=== PATIENT | female | born 1940 | race Caucasian/White ===

== ENCOUNTER → 2016-05-13 | Outpatient (CLI) | payer MEDICARE, OTHER ==
[2016-05-13 12:23] LABS: Basophils # (auto) 0 uL; Basophils % (auto) 0.5 % (0.0-2.0); Eosinophils # (auto) 0.1 uL; Eosinophils % (auto) 1.6 % (0.0-7.0); Hematocrit 42.6 % (36.0-46.0); Hemoglobin 13.6 g/dL (12.2-16.2); Lymphocytes # (auto) 1.3 uL; Lymphocytes % (auto) 24.1 % (10.0-50.0); Mean Corpuscular Volume 93.5 fL (80.0-100.0); Mean Platelet Volume 8.8 fL (7.4-10.4); Monocytes # (auto) 0.4 uL; Monocytes % (auto) 7.6 % (0.0-12.0); Neutrophils # (auto) 3.7 uL; Neutrophils % (auto) 66.2 % (37.0-80.0); Platelet Count (auto) 236 10^3/uL (140-450); Red Cell Distribution Width 12.9 % (11.6-16.0); White Blood Cell 5.5 10^3/uL (4.4-10.8)
[2016-05-13 14:41] LABS: BUN/Creatinine Ratio 18.1; Bilirubin, Total 0.6 mg/dL (0.2-1.0); Potassium 3.7 mmol/L (3.5-5.1); Total Protein 7.5 g/dL (6.4-8.2)
== END | disposition home or self-care (01) ==
LOC: LAB 09:58
DX: E03.9 Hypothyroidism, unspecified (principal); I10 Essential (primary) hypertension; M25.50 Pain in unspecified joint; M06.9 Rheumatoid arthritis, unspecified; Z79.899 Other long term (current) drug therapy; D64.9 Anemia, unspecified
CPT/HCPCS: 36415; 80053; 85025; 85652; 86141

== ENCOUNTER → 2016-06-24 | Outpatient (CLI) | payer MEDICARE, OTHER | END | disposition home or self-care (01) | LOC: HDHVI->DVH 08:03 | PROVIDERS: ATTEND Internal Medicine Cardiovascular Disease | DX: E78.2 Mixed hyperlipidemia (principal); I10 Essential (primary) hypertension; E03.9 Hypothyroidism, unspecified; I05.0 Rheumatic mitral stenosis; M48.00 Spinal stenosis, site unspecified | CPT/HCPCS: 93306 ==

== ENCOUNTER → 2016-08-05 | Outpatient (CLI) | payer MEDICARE, OTHER ==
[~2016-08-05] VITALS: Ht 165.1 cm; Wt 91.2 kg
[~2016-08-05] MED LIST: ADENOSINE 77 MG in GIVE UN-DILUTED 0 ML IV ONE; ADENOSINE 90 MG/30 ML INJ IV ONE
== END | disposition home or self-care (01) ==
LOC: Rad HDHVI 07:47
PROVIDERS: ATTEND Internal Medicine Cardiovascular Disease
DX: I34.2 Nonrheumatic mitral (valve) stenosis (principal); I10 Essential (primary) hypertension; Z82.49 Family history of ischemic heart disease and other diseases of the circulatory system
CPT/HCPCS: 78452; 93005; 96374; 96375; A9500; J0153

== ENCOUNTER → 2016-11-19 | Outpatient (CLI) | payer MEDICARE, OTHER ==
[2016-11-19 09:15] VITALS: BP 119/66
[2016-11-19 10:00] VITALS: BP 121/65
[2016-11-19 10:15] LABS: Urine RBC None Seen /hpf (0 - 4)
[2016-11-19 12:36] LABS: Urine Bilirubin Negative (Negative); Urine Blood Negative /uL (Negative); Urine Color Yellow (Yellow); Urine Glucose Normal (Normal); Urine Ketone Negative (Negative); Urine Nitrite Negative (Negative); Urine Squamous Epithelial Cell FEW /hpf (<5); Urine Urobilinogen Normal (Negative)
[2016-11-19 12:40] LABS: Basophils # (auto) 0 uL; Basophils % (auto) 0.4 % (0.0-2.0); CONDITION Y; Eosinophils # (auto) 0.1 uL; Eosinophils % (auto) 2.4 % (0.0-7.0); Hematocrit 41.2 % (36.0-46.0); Hemoglobin 13.7 g/dL (12.2-16.2); Lymphocytes # (auto) 1.3 uL; Lymphocytes % (auto) 27.2 % (10.0-50.0); Mean Corpuscular Hgb Conc. 33.3 g/dL (32.0-36.0); Mean Corpuscular Volume 93.1 fL (80.0-100.0); Mean Platelet Volume 8.6 fL (7.4-10.4); Monocytes # (auto) 0.3 uL; Monocytes % (auto) 6.2 % (0.0-12.0); Neutrophils # (auto) 3.1 uL; Neutrophils % (auto) 63.8 % (37.0-80.0); Platelet Count (auto) 205 10^3/uL (140-450); Red Cell Distribution Width 13.5 % (11.6-16.0); White Blood Cell 4.9 10^3/uL (4.4-10.8)
[2016-11-19 12:42] LABS: INR 0.95 (0.9-1.15); Prothrombin Time 10.4 sec (9.37-12.3)
[2016-11-19 12:54] LABS: Albumin 3.7 g/dL (3.4-5.0); Bilirubin, Total 0.4 mg/dL (0.2-1.0); Calcium 8.8 mg/dL (8.5-10.1); Potassium 4.1 mmol/L (3.5-5.1); Total Protein 7.1 g/dL (6.4-8.2)
== END | disposition home or self-care (01) ==
LOC: CHF HDHVI 09:00
PROVIDERS: ATTEND Internal Medicine Cardiovascular Disease
DX: Z01.818 Encounter for other preprocedural examination (principal); I05.0 Rheumatic mitral stenosis; R94.31 Abnormal electrocardiogram [ECG] [EKG]; I10 Essential (primary) hypertension; D64.9 Anemia, unspecified; R79.1 Abnormal coagulation profile; R82.79 Other abnormal findings on microbiological examination of urine; Z82.49 Family history of ischemic heart disease and other diseases of the circulatory system
CPT/HCPCS: 36415; 80053; 81001; 85025; 85610; 85730; 87086; 93005; G0463

== ENCOUNTER → 2016-12-27 | Outpatient (CLI) | payer MEDICARE, OTHER ==
[2016-12-27 12:17] LABS: Urine Bilirubin Negative (Negative); Urine Blood Negative /uL (Negative); Urine Color Yellow (Yellow); Urine Glucose Normal (Normal); Urine Ketone Negative (Negative); Urine Nitrite Negative (Negative); Urine Urobilinogen Normal (Negative); Urine pH 7.5 (5.0-8.0)
[2016-12-27 12:24] LABS: Basophils # (auto) 0 uL; Basophils % (auto) 0.7 % (0.0-2.0); Eosinophils # (auto) 0.1 uL; Eosinophils % (auto) 1.8 % (0.0-7.0); Hematocrit 38.7 % (36.0-46.0); Hemoglobin 12.7 g/dL (12.2-16.2); Lymphocytes # (auto) 1.1 uL; Lymphocytes % (auto) 21.3 % (10.0-50.0); Mean Corpuscular Hemoglobin 31.4 pg (28.0-32.0); Mean Corpuscular Hgb Conc. 32.9 g/dL (32.0-36.0); Mean Corpuscular Volume 95.6 fL (80.0-100.0); Monocytes # (auto) 0.5 uL; Neutrophils # (auto) 3.4 uL; Neutrophils % (auto) 67.2 % (37.0-80.0); Platelet Count (auto) 219 10^3/uL (140-450); Red Cell Distribution Width 14.5 % (11.8-14.3); White Blood Cell 5.1 10^3/uL (4.4-10.8)
[2016-12-27 12:46] LABS: Albumin 4.1 g/dL (3.4-5.0); BUN/Creatinine Ratio 15.6; Bilirubin, Direct 0.2 mg/dL (0-0.2); Bilirubin, Total 0.6 mg/dL (0.2-1.0); Calcium 9.9 mg/dL (8.5-10.1); Potassium 4.9 mmol/L (3.5-5.1); Total Protein 7.7 g/dL (6.4-8.2)
== END | disposition home or self-care (01) ==
LOC: LAB 08:09
PROVIDERS: ATTEND Internal Medicine Cardiovascular Disease
DX: I10 Essential (primary) hypertension (principal); E78.00 Pure hypercholesterolemia, unspecified; K74.1 Hepatic sclerosis; E11.9 Type 2 diabetes mellitus without complications; E03.9 Hypothyroidism, unspecified; D64.9 Anemia, unspecified; N39.0 Urinary tract infection, site not specified; E55.9 Vitamin D deficiency, unspecified; R70.0 Elevated erythrocyte sedimentation rate; I25.10 Atherosclerotic heart disease of native coronary artery without angina pectoris
CPT/HCPCS: 36415; 80048; 80061; 80076; 81003; 82306; 83036; 84439; 84443; 85025; 85652; 86141

== ENCOUNTER → 2017-07-28 | Outpatient (CLI) | payer MEDICARE, OTHER ==
[2017-07-28 12:18] LABS: Urine Blood Negative /uL (Negative); Urine Specific Gravity 1.012 (1.001-1.035)
[2017-07-28 12:25] LABS: Basophils # (auto) 0 uL; Basophils % (auto) 0.4 % (0.0-2.0); Eosinophils # (auto) 0.1 uL; Eosinophils % (auto) 1.6 % (0.0-7.0); Hematocrit 44.6 % (36.0-46.0); Hemoglobin 14.9 g/dL (12.2-16.2); Lymphocytes % (auto) 20.4 % (10.0-50.0); Mean Corpuscular Hgb Conc. 33.5 g/dL (32.0-36.0); Mean Corpuscular Volume 92.5 fL (80.0-100.0); Monocytes # (auto) 0.4 uL; Monocytes % (auto) 7.8 % (0.0-12.0); Neutrophils # (auto) 3.5 uL; Neutrophils % (auto) 69.8 % (37.0-80.0); Nucleated Red Blood Cells % 0.6 %; Platelet Count (auto) 163 10^3/uL (140-450); Red Blood Cells 4.81 10^6/uL (4.0-5.20); Red Cell Distribution Width 13.5 % (11.8-14.3)
[2017-07-28 12:43] LABS: Free T4 (Free Thyroxine) 1.91 ng/dL (0.89-1.76)
[2017-07-28 13:16] LABS: BUN/Creatinine Ratio 22.7; Bilirubin, Total 0.5 mg/dL (0.2-1.0); Calcium 9.2 mg/dL (8.5-10.1); Potassium 4.2 mmol/L (3.5-5.1); Total Protein 7.4 g/dL (6.4-8.2)
== END | disposition home or self-care (01) ==
LOC: LAB 08:48
PROVIDERS: ATTEND Internal Medicine Cardiovascular Disease
DX: I10 Essential (primary) hypertension (principal); E11.9 Type 2 diabetes mellitus without complications; D64.9 Anemia, unspecified; E78.5 Hyperlipidemia, unspecified; E03.9 Hypothyroidism, unspecified; E55.9 Vitamin D deficiency, unspecified; N39.0 Urinary tract infection, site not specified; D51.9 Vitamin B12 deficiency anemia, unspecified
CPT/HCPCS: 36415; 80053; 80061; 81003; 82306; 82607; 83036; 84439; 84443; 85025

== ENCOUNTER → 2018-01-20 | Outpatient (CLI) | payer MEDICARE, BC | END | disposition home or self-care (01) | LOC: Rad HDHVI 09:36 | PROVIDERS: ATTEND Internal Medicine Cardiovascular Disease | DX: I95.9 Hypotension, unspecified (principal); R07.89 Other chest pain; R06.02 Shortness of breath | CPT/HCPCS: 93306 ==

== ENCOUNTER → 2018-02-06 | Outpatient (CLI) | payer MEDICARE, BC ==
[~2018-02-06] VITALS: Ht 165.1 cm; Wt 90.7 kg
[2018-02-06 12:57] LABS: Basophils # (auto) 0 uL; Basophils % (auto) 0.7 % (0.0-2.0); Eosinophils # (auto) 0.1 uL; Eosinophils % (auto) 2.2 % (0.0-7.0); Hemoglobin 13.8 g/dL (12.2-16.2); Lymphocytes # (auto) 0.9 uL; Lymphocytes % (auto) 23.5 % (10.0-50.0); Mean Corpuscular Hemoglobin 31.1 pg (28.0-32.0); Mean Corpuscular Hgb Conc. 32.9 g/dL (32.0-36.0); Mean Corpuscular Volume 94.6 fL (80.0-100.0); Monocytes # (auto) 0.4 uL; Monocytes % (auto) 9.1 % (0.0-12.0); Neutrophils # (auto) 2.5 uL; Neutrophils % (auto) 64.5 % (37.0-80.0); Nucleated Red Blood Cells % 0.5 %; Platelet Count (auto) 163 10^3/uL (140-450); Red Blood Cells 4.45 10^6/uL (4.0-5.20); Red Cell Distribution Width 13.3 % (11.8-14.3); White Blood Cell 3.9 10^3/uL (4.4-10.8)
[2018-02-06 12:58] LABS: Urine Blood Negative /uL (Negative); Urine Specific Gravity 1.018 (1.001-1.035)
[2018-02-06 13:20] LABS: Albumin 3.7 g/dL (3.4-5.0); BUN/Creatinine Ratio 22.1; Calcium 8.8 mg/dL (8.5-10.1)
[2018-02-06 13:24] LABS: Bilirubin, Total 0.4 mg/dL (0.2-1.0); Total Protein 7.2 g/dL (6.4-8.2)
[2018-02-06 13:52] LABS: Free T4 (Free Thyroxine) 1.39 ng/dL (0.89-1.76)
== END | disposition home or self-care (01) ==
LOC: Rad HDHVI 07:55
PROVIDERS: ATTEND Internal Medicine Cardiovascular Disease
DX: R07.89 Other chest pain (principal); R06.02 Shortness of breath; E03.9 Hypothyroidism, unspecified; E55.9 Vitamin D deficiency, unspecified; E11.9 Type 2 diabetes mellitus without complications; D51.9 Vitamin B12 deficiency anemia, unspecified; N39.0 Urinary tract infection, site not specified; M62.89 Other specified disorders of muscle; E04.9 Nontoxic goiter, unspecified
CPT/HCPCS: 36415; 78452; 80053; 80061; 81003; 82306; 82607; 83036; 84439; 84443; 85025; 87086; 93017; 96374; A9500

== ENCOUNTER → 2018-04-21 | Outpatient (CLI) | payer MEDICARE, BC | END | disposition home or self-care (01) | LOC: Rad HDHVI 14:29 | PROVIDERS: ATTEND Internal Medicine Cardiovascular Disease | DX: M85.9 Disorder of bone density and structure, unspecified (principal) | CPT/HCPCS: 77078 ==

== ENCOUNTER → 2018-06-23 | Outpatient (CLI) | payer MEDICARE, BC | END | disposition home or self-care (01) | LOC: Rad HDHVI 12:46 | PROVIDERS: ATTEND Internal Medicine Cardiovascular Disease | DX: I34.0 Nonrheumatic mitral (valve) insufficiency (principal); I11.0 Hypertensive heart disease with heart failure; I50.33 Acute on chronic diastolic (congestive) heart failure | CPT/HCPCS: 93306 ==

== ENCOUNTER → 2018-06-28 | Outpatient (CLI) | payer MEDICARE, BC ==
[2018-06-28 12:23] LABS: Basophils # (auto) 0 uL; Basophils % (auto) 0.5 % (0.0-2.0); Eosinophils # (auto) 0.1 uL; Eosinophils % (auto) 3.2 % (0.0-7.0); Hematocrit 43.6 % (36.0-46.0); Hemoglobin 14.3 g/dL (12.2-16.2); Lymphocytes # (auto) 0.9 uL; Lymphocytes % (auto) 25.2 % (10.0-50.0); Mean Corpuscular Hgb Conc. 32.8 g/dL (32.0-36.0); Mean Corpuscular Volume 94.5 fL (80.0-100.0); Monocytes # (auto) 0.3 uL; Monocytes % (auto) 9.3 % (0.0-12.0); Neutrophils # (auto) 2.2 uL; Neutrophils % (auto) 61.8 % (37.0-80.0); Nucleated Red Blood Cells % 0.2 %; Platelet Count (auto) 159 10^3/uL (140-450); Red Blood Cells 4.61 10^6/uL (4.0-5.20); Red Cell Distribution Width 13.5 % (11.8-14.3); White Blood Cell 3.5 10^3/uL (4.4-10.8)
[2018-06-28 12:26] LABS: Urine Blood Negative /uL (Negative); Urine Specific Gravity 1.018 (1.001-1.035)
[2018-06-28 12:42] LABS: Albumin 3.8 g/dL (3.4-5.0); Calcium 9.3 mg/dL (8.5-10.1); Potassium 4.3 mmol/L (3.5-5.1)
[2018-06-28 12:47] LABS: BUN/Creatinine Ratio 18.3; Bilirubin, Total 0.4 mg/dL (0.2-1.0)
[2018-06-28 13:00] LABS: Free T4 (Free Thyroxine) 1.74 ng/dL (0.89-1.76)
== END | disposition home or self-care (01) ==
LOC: CHF HDHVI 07:52
PROVIDERS: ATTEND Internal Medicine Cardiovascular Disease
DX: N39.0 Urinary tract infection, site not specified (principal); E03.9 Hypothyroidism, unspecified; E11.9 Type 2 diabetes mellitus without complications; E55.9 Vitamin D deficiency, unspecified; D51.9 Vitamin B12 deficiency anemia, unspecified
CPT/HCPCS: 36415; 80053; 80061; 81003; 82306; 82607; 83036; 84439; 84443; 85025; 87086

== ENCOUNTER → 2018-10-02 | Outpatient (CLI) | payer MEDICARE, BC | END | disposition home or self-care (01) | LOC: Rad HDHVI 09:16 | PROVIDERS: ATTEND Internal Medicine Cardiovascular Disease | DX: K57.30 Diverticulosis of large intestine without perforation or abscess without bleeding (principal); D25.9 Leiomyoma of uterus, unspecified; M51.37 Other intervertebral disc degeneration, lumbosacral region; M40.46 Postural lordosis, lumbar region; M89.48 Other hypertrophic osteoarthropathy, other site; M54.17 Radiculopathy, lumbosacral region; M25.78 Osteophyte, vertebrae; M54.14 Radiculopathy, thoracic region; M25.551 Pain in right hip; M25.552 Pain in left hip; M51.26 Other intervertebral disc displacement, lumbar region | CPT/HCPCS: 72131; 72192 ==

== ENCOUNTER 2019-04-13 14:31 | Inpatient (IN) | payer MEDICARE, OTHER ==
[~2019-04-13] VITALS: Ht 165.1 cm; Wt 97.9 kg
[2019-04-13] MEDS ORDERED: SODIUM CHLORIDE 0.9% 500 ML IV ONE (15:05)
[2019-04-13 16:49] LABS: Basophils # (auto) 0 uL; Basophils % (auto) 0.4 % (0.0-2.0); Eosinophils # (auto) 0 uL; Eosinophils % (auto) 0.6 % (0.0-7.0); Hematocrit 43.7 % (36.0-46.0); Hemoglobin 14.6 g/dL (12.2-16.2); Lymphocytes # (auto) 0.8 uL; Lymphocytes % (auto) 10.6 % (10.0-50.0); Mean Corpuscular Hemoglobin 31.3 pg (28.0-32.0); Mean Corpuscular Hgb Conc. 33.4 g/dL (32.0-36.0); Mean Corpuscular Volume 93.7 fL (80.0-100.0); Monocytes # (auto) 0.5 uL; Monocytes % (auto) 7.3 % (0.0-12.0); Neutrophils # (auto) 5.9 uL; Neutrophils % (auto) 81.1 % (37.0-80.0); Nucleated Red Blood Cells % 0.1 %; Platelet Count (auto) 129 10^3/uL (140-450); Red Blood Cells 4.67 10^6/uL (4.0-5.20); Red Cell Distribution Width 14.2 % (11.8-14.3); White Blood Cell 7.3 10^3/uL (4.4-10.8)
[2019-04-13 17:08] LABS: Albumin 3.6 g/dL (3.4-5.0); BUN/Creatinine Ratio 23.1; Calcium 9.1 mg/dL (8.5-10.1); Magnesium 2.6 mg/dL (1.6-2.6); Potassium 4.6 mmol/L (3.5-5.1)
[2019-04-13 17:13] LABS: Bilirubin, Total 0.4 mg/dL (0.2-1.0); Total Protein 7.4 g/dL (6.4-8.2)
[2019-04-13 18:51] LABS: Urine Bacteria NONE SEEN /hpf (None Seen); Urine Blood Negative /uL (Negative); Urine Mucus FEW (None Seen); Urine Specific Gravity 1.007 (1.001-1.035); Urine WBC 1 /hpf (0 - 5)
[2019-04-13] MEDS ORDERED: ENOXAPARIN SOD 80 MG/0.8ML SYRINGE SC SCH (19:30)
[2019-04-13] MEDS ORDERED: ENOXAPARIN SOD 80 MG/0.8ML SYRINGE SC ONE (20:15)
[2019-04-13 21:45] VITALS: BP 165/84
--- NOTE | 2019-04-13 21:45 | NUR ---
Telemetry admit from [facility] admitted to Telemetry unit. Patient oriented to primary RN, unit, room, bed, and unit policies regarding patient care and visiting hours. Patient now on continuous telemetry monitoring, tele box #55 and telemetry reading on arrival to unit is sinus rhythm. Patient placed on bedside oxygen, weighed by bedscale and encouraged to call if they need something. All questions and concerns addressed, patient verbalized understanding. Bed is in lowest locked position, call light within reach, side rails up x2, fall precautions in place. Will continue to monitor q1hr and prn. Signed: 04/13/19 at 2355 by MIGUEL OJEDA SN <Co-Signature Required> Co-Signed: 04/13/19 at 2355 by WILLIAM PERRIN OCA, RN
[2019-04-13 21:57] VITALS: BP 165/84
[2019-04-13] MEDS ORDERED: LEVO125T7 PO (23:15)
[2019-04-13] MEDS ORDERED: GABA100C9 PO (23:15)
[2019-04-13] MEDS ORDERED: LORA0.5T12 PO (23:15)
[2019-04-13] MEDS ORDERED: MAGN400T40 PO (23:15)
[2019-04-13] MEDS ORDERED: LISI-275 PO (23:15)
[2019-04-13] MEDS ORDERED: CYA100I PO (23:15)
[2019-04-13] MEDS ORDERED: METO25TA93 PO (23:15)
[2019-04-13] MEDS ORDERED: CARB25TA22 PO (23:15)
[2019-04-13] MEDS ORDERED: MULT-688 PO (23:15)
[2019-04-13] MEDS ORDERED: ESCI20TA51 PO (23:15)
[2019-04-13] MEDS ORDERED: CHOL20007 PO (23:15)
[2019-04-14 04:44] VITALS: BP 115/65
[2019-04-14 09:12] VITALS: BP 94/62
[2019-04-14] MEDS ORDERED: ENOXAPARIN SOD 80 MG/0.8ML SYRINGE SC SCH (10:00)
[2019-04-14] MEDS: ENOXAPARIN SOD 80 MG/0.8ML SYRINGE SC SCH ×2 (11:02→22:06)
[2019-04-14 13:32] VITALS: BP 111/57
[2019-04-14] MEDS ORDERED: GABAPENTIN 100 MG CAP PO PRN ×2 (15:30→16:00)
[2019-04-14] MEDS ORDERED: LORazepam 0.5 MG TAB PO PRN (15:30)
[2019-04-14 17:17] VITALS: BP 130/72
--- NOTE | 2019-04-14 19:42 | NUR ---
received report from day rn poc reviewed
--- NOTE | 2019-04-14 20:00 | NUR ---
pt observed resting comfortable, resp even and unlabored, family at bedside, denies pain or discomfort,
[2019-04-14 21:00] VITALS: BP 126/63
--- NOTE | 2019-04-14 22:00 | NUR ---
evening med given, pt denies pain or discomfort, family at bedside, spouse stated that his is blind and he was given permission last night to stay with her to help her to the bathroom, no other pts in room, will notify charge nurse
--- NOTE | 2019-04-15 | NUR ---
no change resting comfortable with eyes closed
--- NOTE | 2019-04-15 02:11 | NUR ---
resting with eyes closed resp even call light within reach
[2019-04-15] MEDS ORDERED: OLAN2.5T32 PO (02:39)
[2019-04-15 04:30] VITALS: BP 156/91
[2019-04-15] MEDS: LEVOTHYROXINE SODIUM 50 MCG TAB PO SCH (06:40)
--- NOTE | 2019-04-15 06:47 | NUR ---
awoke am care given, no c/o discomfort will continue to monitor and report off to am nurse
[2019-04-15] MEDS ORDERED: LEVOTHYROXINE SODIUM 25 MCG TAB PO SCH (07:00)
--- NOTE | 2019-04-15 07:10 | NUR ---
report given to am nurse poc reviewed
[2019-04-15 09:00] VITALS: BP 137/71
[2019-04-15] MEDS: MAGNESIUM OXIDE 400 MG TAB PO SCH (10:29)
[2019-04-15] MEDS: METOPROLOL SUCCINATE XL 50 MG TAB PO SCH (10:29)
[2019-04-15] MEDS: LISINOPRIL 5 MG TAB PO SCH (10:29)
[2019-04-15] MEDS: ENOXAPARIN SOD 80 MG/0.8ML SYRINGE SC SCH ×2 (10:30→22:00)
[2019-04-15 13:00] VITALS: BP 147/86
[2019-04-15 17:00] VITALS: BP 163/82
--- NOTE | 2019-04-15 19:30 | NUR ---
received pt from day rn poc reviewed
[2019-04-15 21:00] VITALS: BP 141/83
--- NOTE | 2019-04-15 22:00 | NUR ---
pts spouse stated that he kelsey sign pts consents r/t pt not able to see, all questions and concerns addressed
--- NOTE | 2019-04-16 01:07 | NUR ---
pt npo at this time resting with eyes closed resp even and unlabored, call light within reach
[2019-04-16 04:30] VITALS: BP 142/78
--- NOTE | 2019-04-16 05:45 | NUR ---
pt and spouse signed all consents, poc reviewed, pt denies pain or discomfort
[2019-04-16 06:13] LABS: INR 1.07 (0.9-1.15); Partial Thromboplastin Time 26.3 sec (23.64-32.05)
[2019-04-16] MEDS: LEVOTHYROXINE SODIUM 50 MCG TAB PO SCH (06:18)
[2019-04-16 06:29] LABS: Potassium 4.1 mmol/L (3.5-5.1)
[2019-04-16 06:36] LABS: Albumin 3.3 g/dL (3.4-5.0); BUN/Creatinine Ratio 21.2; Bilirubin, Total 0.5 mg/dL (0.2-1.0); Calcium 8.8 mg/dL (8.5-10.1); Total Protein 6.4 g/dL (6.4-8.2)
--- NOTE | 2019-04-16 07:11 | NUR ---
report given to am nurse poc reviewed
--- NOTE | 2019-04-16 07:40 | NUR ---
Opening Note Received report from ward attendant RN. Patient is awake, alert and oriented x4. No signs or symptoms of distress noted at this time. Patient is on 2L NC, respirations even and unlabored. Patient denies pain at this time. Reviewed plan of care with patient, patient verbalized understanding. Patient is NPO for scheduled procedure today. Bed in low and locked position, call light within reach. Will continue to monitor Q1 hour and PRN.
[2019-04-16] MEDS ORDERED: IOHEXOL 350 MG/ML 100ML IJ ONE ×3 (07:56→08:57)
[2019-04-16] MEDS ORDERED: LIDOCAINE 2%HCL (LOCAL ANESTH.) INJ 20ML MDV ONE (07:56)
--- NOTE | 2019-04-16 08:05 | NUR ---
Patient taken down to clay processing labourer via yobani at bedside
[2019-04-16] MEDS ORDERED: MIDAZOLAM HCL 1MG/1ML-2 ML VIAL ONE (08:56)
[2019-04-16] MEDS ORDERED: diphenhdrAMINE HCL 50 MG/1 ML VL ONE (08:56)
[2019-04-16] MEDS ORDERED: methylPREDNISolone SOD SUCC 125 MG/2 ML VL ONE (08:56)
[2019-04-16] MEDS ORDERED: fentaNYL CITRATE 100 MCG/2 ML VL ONE (08:56)
[2019-04-16] MEDS ORDERED: ANGIOMAX 250 MG VIAL IV ONE (08:56)
[2019-04-16] MEDS ORDERED: SODIUM CHL 0.9% 0 ML ONE (08:57)
[2019-04-16] MEDS ORDERED: FAMOTIDINE (10MG/ML) 2ML VL IV ONE (08:57)
[2019-04-16 09:00] VITALS: BP 146/72
[2019-04-16] MEDS ORDERED: SODIUM CHLORIDE 0.9% 1,000 ML IV SCH (09:43)
[2019-04-16] MEDS: ENOXAPARIN SOD 80 MG/0.8ML SYRINGE SC SCH (09:52)
--- NOTE | 2019-04-16 09:57 | NUR ---
Received report from cath awaiting patient to be brought back to room
--- NOTE | 2019-04-16 10:35 | NUR ---
Patient back from cath lab tech Patient is s/p left heart cath. Dressing to right groin is clean, dry and intact. No signs or bleeding or hematoma noted at this time. Patient instructed to lay flat until 1130, verbalized understanding. Patient on 2L NC, respirations even and unlabored. Patient denies pain at this time. at bedside. Bed in low and locked position, call light within reach. Will continue to monitor Q1 hour and PRN.
[2019-04-16] MEDS: MAGNESIUM OXIDE 400 MG TAB PO SCH (11:54)
[2019-04-16] MEDS: METOPROLOL SUCCINATE XL 50 MG TAB PO SCH (11:55)
[2019-04-16] MEDS: LISINOPRIL 5 MG TAB PO SCH (11:55)
[2019-04-16 13:05] VITALS: BP 162/77
[2019-04-16 16:49] VITALS: BP 124/74
--- NOTE | 2019-04-16 18:25 | NUR ---
Dr. Conrad at bedside Reviewing plan of care with patient and . Patient to be discharge today. Will implement new orders. Will continue to monitor.
--- NOTE | 2019-04-16 18:48 | NUR ---
Discharge Discharge instructions given as ordered. Encourage to follow up with PMD as instructed. All questions and concerns addressed. Patient verbalized understanding. Medication reconciliation form completed and copy given to patient. IV catheter removed, catheter intact, pressure dressing applied. salvage worker removed and sent back to ICU. Patient taken down to private vehicle via wheelchair, with all personal belongings. Accompanied by staff and family member. No signs or symptoms of distress noted at this time.
== END 2019-04-16 18:50 | disposition home or self-care (01) | DRG 282 ==
LOC: EDBD 14:31 → EDUNIT# 14:31 → ER 14:31 → TELE 14:32 → TELE-WESTW 21:38
PROVIDERS: ADMIT Internal Medicine Cardiovascular Disease; ATTEND Internal Medicine Cardiovascular Disease
PROC: 4A023N7 Measurement of Cardiac Sampling and Pressure, Left Heart, Percutaneous Approach (ICD-10-PCS; principal; 2019-04-16)
PROC: B2111ZZ Fluoroscopy of Multiple Coronary Arteries using Low Osmolar Contrast (ICD-10-PCS; 2019-04-16)
PROC: B2151ZZ Fluoroscopy of Left Heart using Low Osmolar Contrast (ICD-10-PCS; 2019-04-16)
DX: I21.4 Non-ST elevation (NSTEMI) myocardial infarction (principal); I95.9 Hypotension, unspecified; E86.9 Volume depletion, unspecified; I10 Essential (primary) hypertension; G20 Parkinson's disease; Z96.651 Presence of right artificial knee joint; R00.1 Bradycardia, unspecified; Z90.49 Acquired absence of other specified parts of digestive tract
CPT/HCPCS: 36415; 70450; 71045; 80053; 81001; 83735; 84484; 85025; 85610; 85730; 93005; 93458; 99152; G0378; J2250; J3490

== ENCOUNTER → 2019-04-26 | Outpatient (CLI) | payer MEDICARE, OTHER ==
[~2019-04-26] MED LIST changes: -ADENOSINE 77 MG in GIVE UN-DILUTED 0 ML IV ONE; -ADENOSINE 90 MG/30 ML INJ IV ONE; +CARB25TA22 PO; +CHOL20007 PO; +CYA100I PO; +ESCI20TA51 PO; +GABA100C9 PO; +LEVO125T7 PO; +LISI-275 PO; +LORA0.5T12 PO; +MAGN400T40 PO; +METO25TA93 PO; +MULT-688 PO; +OLAN2.5T32 PO
== END | disposition home or self-care (01) ==
LOC: LAB 10:39
PROVIDERS: ATTEND Internal Medicine Cardiovascular Disease
DX: R94.4 Abnormal results of kidney function studies (principal)
CPT/HCPCS: 36415; 82565

== ENCOUNTER → 2019-04-27 | Outpatient (CLI) | payer MEDICARE, OTHER ==
[~2019-04-27] MED LIST changes: +IOHEXOL 350 MG/ML 100ML IJ ONE; +LISINOPRIL 10 MG TAB ONE; +LISINOPRIL 10 MG TAB PO ONE; +methylPREDNISolone SOD SUCC 125 MG/2 ML VL IV ONE; +methylPREDNISolone SOD SUCC 125 MG/2 ML VL ONE
[2019-04-27 08:50] VITALS: BP 192/84
--- NOTE | 2019-04-27 09:00 | NUR ---
IV insertion IV access obtained BY MADELINE RUBIN, via clean sterile technique by inserting [20] gauge catheter at [RAC] after [1] attempt(s). IV secured properly. No trauma to site. Patient tolerated procedure well.
--- NOTE | 2019-04-27 09:04 | NUR ---
PT STATED SHELLFISH ALLERGY, PT PREMEDICATED WITH SOLUMEDROL IVP PER MD ORDERS. SOLUMEDROL GIVEN BY MADELINE RUBIN. PT TOLERATED WELL.
--- NOTE | 2019-04-27 09:05 | NUR ---
PT BACK FOR CT PT ESCORTED BY FOR CTA OF CHEST, DUE TO SHELLFISH ALLERGY, MADELINE RN BACK IN CT WITH PT FOR OBSERVATION WHILE RECEIVING CTA.
--- NOTE | 2019-04-27 09:13 | NUR ---
PT BACK FROM CT PT BACK FROM CT, PT TOLERATED PROCEDURE WELL. NO S/S OF DISTRESS/SOB NOTED. PATIENT BP REMAINS ELEVATED AT 188/88, WILL LET PT REST AND RECHECK. WILL CONTINUE TO MONITOR.
--- NOTE | 2019-04-27 10:30 | NUR ---
PT BLOOD PRESSURE REMAINS HIGH. 182/87 HR 70. PT ASYMPTOMATIC BUT RECENTLY WAS TOLD TO STOP BP MEDS YESTERDAY BY MD. CORREA RN TO TALK TO DR MCCALL:PATIENTS BLOOD PRESSURE.
--- NOTE | 2019-04-27 10:45 | NUR ---
DR. PERDUE UPDATED ON PT'S STATUS DR. PERDUE MADE AWARE OF PT'S HIGH BLOOD PRESSURE AND CT RESULTS. ORDERS TO CONTINUE HOME ELIQUIS DOSAGE PER YESTERDAY. NEW ORDERS RECEIVED FOR HIGH BLOOD PRESSURE. ORDERS CARRIED OUT. CT RESULTS REVIEWED WITH PT/PT BY AND PT/PT VERBALIZING UNDERSTANDING REGARDING UPDATED HOME MEDICATIONS. WILL CONTINUE TO MONITOR.
--- NOTE | 2019-04-27 11:30 | NUR ---
BLOOD PRESSURE DECREASING BLOOD PRESSURE DECREASING. NOW 172/82 HR 68. PT REMAINS ASYMPTOMATIC. WILL CONTINUE TO MONITOR.
--- NOTE | 2019-04-27 12:20 | NUR ---
PT'S BLOOD PRESSURE DECREASED, NOW STABLE AT 145/77 HR 64. WILL D/C PER MD ORDERS.
[2019-04-27 12:30] VITALS: BP 145/77
--- NOTE | 2019-04-27 12:30 | NUR ---
CHF Discharge Instructions See e-MAR for any mediations given with this visit. Patient education given on disease process. Patient verbalized understanding. Previous labs reviewed. VSS. Patient discharged in stable condition with after care instructions and follow up appointment. NOTES SOLUMEDROL IVP ADMIN BY MADELINE RUBIN LISINOPRIL PO ADMIN BY JAYDEN RUBIN
== END | disposition home or self-care (01) ==
LOC: Rad HDHVI 08:42
PROVIDERS: ATTEND Internal Medicine Cardiovascular Disease
DX: I05.0 Rheumatic mitral stenosis (principal); E03.9 Hypothyroidism, unspecified; I10 Essential (primary) hypertension; M48.00 Spinal stenosis, site unspecified; J06.9 Acute upper respiratory infection, unspecified; R07.9 Chest pain, unspecified
CPT/HCPCS: 71275; 96374; G0463; J2930; Q9967

== ENCOUNTER → 2019-05-10 | Outpatient (CLI) | payer MEDICARE, OTHER ==
[~2019-05-10] MED LIST changes: -IOHEXOL 350 MG/ML 100ML IJ ONE; -LISINOPRIL 10 MG TAB ONE; -LISINOPRIL 10 MG TAB PO ONE; -methylPREDNISolone SOD SUCC 125 MG/2 ML VL IV ONE; -methylPREDNISolone SOD SUCC 125 MG/2 ML VL ONE
== END | disposition home or self-care (01) ==
LOC: Rad HDHVI 08:42
PROVIDERS: ATTEND Internal Medicine Cardiovascular Disease
DX: I08.0 Rheumatic disorders of both mitral and aortic valves (principal); J44.9 Chronic obstructive pulmonary disease, unspecified; I10 Essential (primary) hypertension; R07.89 Other chest pain
CPT/HCPCS: 93306

== ENCOUNTER → 2019-05-25 | Outpatient (CLI) | payer MEDICARE, BC | END | disposition home or self-care (01) | LOC: LAB 10:56 | PROVIDERS: ATTEND Internal Medicine Cardiovascular Disease | DX: R94.4 Abnormal results of kidney function studies (principal) | CPT/HCPCS: 36415; 82565 ==

== ENCOUNTER → 2019-05-29 | Outpatient (CLI) | payer MEDICARE, BC ==
[~2019-05-29] MED LIST changes: +IOHEXOL 350 MG/ML 100ML IJ ONE; +methylPREDNISolone SOD SUCC 125 MG/2 ML VL IV ONE; +methylPREDNISolone SOD SUCC 125 MG/2 ML VL ONE
[2019-05-29 08:53] VITALS: BP 143/77
[2019-05-29 09:49] VITALS: BP 135/70
== END | disposition home or self-care (01) ==
LOC: Rad HDHVI 08:38
PROVIDERS: ATTEND Internal Medicine Cardiovascular Disease
DX: J98.8 Other specified respiratory disorders (principal); R06.02 Shortness of breath; R07.9 Chest pain, unspecified; I51.7 Cardiomegaly
CPT/HCPCS: 71275; 96374; G0463; J2930; Q9967

== ENCOUNTER → 2019-07-17 | Outpatient (CLI) | payer MEDICARE, BC ==
[~2019-07-17] MED LIST changes: -IOHEXOL 350 MG/ML 100ML IJ ONE; -OLAN2.5T32 PO; +OLAN2.5T38 PO; -methylPREDNISolone SOD SUCC 125 MG/2 ML VL IV ONE; -methylPREDNISolone SOD SUCC 125 MG/2 ML VL ONE
[2019-07-17 12:02] LABS: Basophils # (auto) 0 10 ^3/uL (0-0.2); Basophils % (auto) 0.6 % (0.0-2.0); Eosinophils # (auto) 0.1 10 ^3/uL (0-0.8); Eosinophils % (auto) 1.6 % (0.0-7.0); Hematocrit 43.2 % (36.0-46.0); Hemoglobin 14.2 g/dL (12.2-16.2); Lymphocytes # (auto) 0.9 10 ^3/uL (0.4-5.4); Mean Corpuscular Hemoglobin 31.3 pg (28.0-32.0); Mean Corpuscular Hgb Conc. 32.9 g/dL (32.0-36.0); Mean Corpuscular Volume 95.1 fL (80.0-100.0); Monocytes # (auto) 0.5 10 ^3/uL (0-1.3); Monocytes % (auto) 9.4 % (0.0-12.0); Neutrophils # (auto) 3.4 10 ^3/uL (1.6-8.6); Neutrophils % (auto) 70.4 % (37.0-80.0); Nucleated Red Blood Cells % 0.1 %; Platelet Count (auto) 161 10^3/uL (140-450); Red Blood Cells 4.54 10^6/uL (4.0-5.20); Red Cell Distribution Width 14.4 % (11.8-14.3); White Blood Cell 4.8 10^3/uL (4.4-10.8)
== END | disposition home or self-care (01) ==
LOC: LAB 09:44
PROVIDERS: ATTEND Internal Medicine Cardiovascular Disease
DX: Z01.89 Encounter for other specified special examinations (principal); I10 Essential (primary) hypertension
CPT/HCPCS: 36415; 85025

== ENCOUNTER → 2019-11-20 | Outpatient (CLI) | payer MEDICARE, BC ==
[~2019-11-20] MED LIST changes: -LORA0.5T12 PO; +LORA0.5T20 PO
== END | disposition home or self-care (01) ==
LOC: Rad HDHVI 10:45
PROVIDERS: ATTEND Internal Medicine Cardiovascular Disease
DX: J44.9 Chronic obstructive pulmonary disease, unspecified (principal); R06.02 Shortness of breath; R53.1 Weakness
CPT/HCPCS: 93306

== ENCOUNTER → 2019-11-27 | Outpatient (CLI) | payer MEDICARE, BC ==
[~2019-11-27] VITALS: Ht 165.1 cm; Wt 92.1 kg
[~2019-11-27] MED LIST changes: +ADENOSINE 77 MG in GIVE UN-DILUTED 0 ML IV ONE; +ADENOSINE 90 MG/30 ML INJ IV ONE
[2019-11-27 12:12] LABS: Basophils # (auto) 0 10 ^3/uL (0-0.2); Basophils % (auto) 0.4 % (0.0-2.0); Eosinophils # (auto) 0.1 10 ^3/uL (0-0.8); Eosinophils % (auto) 1.4 % (0.0-7.0); Hematocrit 43.3 % (36.0-46.0); Hemoglobin 14.5 g/dL (12.2-16.2); Lymphocytes # (auto) 0.8 10 ^3/uL (0.4-5.4); Lymphocytes % (auto) 17.6 % (10.0-50.0); Mean Corpuscular Hemoglobin 30.8 pg (28.0-32.0); Mean Corpuscular Hgb Conc. 33.5 g/dL (32.0-36.0); Mean Corpuscular Volume 91.8 fL (80.0-100.0); Monocytes # (auto) 0.4 10 ^3/uL (0-1.3); Monocytes % (auto) 7.8 % (0.0-12.0); Neutrophils # (auto) 3.5 10 ^3/uL (1.6-8.6); Neutrophils % (auto) 72.8 % (37.0-80.0); Nucleated Red Blood Cells % 0.2 %; Platelet Count (auto) 154 10^3/uL (140-450); Red Blood Cells 4.72 10^6/uL (4.0-5.20); Red Cell Distribution Width 14.1 % (11.8-14.3); White Blood Cell 4.8 10^3/uL (4.4-10.8)
[2019-11-27 12:18] LABS: Urine Blood Negative /uL (Negative); Urine Specific Gravity 1.012 (1.001-1.035)
[2019-11-27 12:24] LABS: Potassium 4.1 mmol/L (3.5-5.1)
[2019-11-27 12:33] LABS: Free T4 (Free Thyroxine) 1.95 ng/dL (0.89-1.76)
[2019-11-27 12:39] LABS: Albumin 3.8 g/dL (3.4-5.0); BUN/Creatinine Ratio 16.3; Bilirubin, Total 0.5 mg/dL (0.2-1.0); Calcium 9.2 mg/dL (8.5-10.1); Total Protein 6.7 g/dL (6.4-8.2)
== END | disposition home or self-care (01) ==
LOC: Rad HDHVI 08:16
PROVIDERS: ATTEND Internal Medicine Cardiovascular Disease
DX: M47.814 Spondylosis without myelopathy or radiculopathy, thoracic region (principal); M81.0 Age-related osteoporosis without current pathological fracture; E11.9 Type 2 diabetes mellitus without complications; E03.9 Hypothyroidism, unspecified; I10 Essential (primary) hypertension; K90.9 Intestinal malabsorption, unspecified; N39.0 Urinary tract infection, site not specified; D51.9 Vitamin B12 deficiency anemia, unspecified; D64.9 Anemia, unspecified; E78.5 Hyperlipidemia, unspecified; E55.9 Vitamin D deficiency, unspecified; J44.9 Chronic obstructive pulmonary disease, unspecified; R07.9 Chest pain, unspecified; R06.02 Shortness of breath; Z79.899 Other long term (current) drug therapy; Z01.82 Encounter for allergy testing; Z88.8 Allergy status to other drugs, medicaments and biological substances; Z82.49 Family history of ischemic heart disease and other diseases of the circulatory system; Z91.013 Allergy to seafood
CPT/HCPCS: 36415; 71046; 78452; 80053; 80061; 81003; 82306; 82607; 83036; 84439; 84443; 85025; 87086; 93005; 96374; 96375; A9500; J0153

== ENCOUNTER → 2020-02-25 | Outpatient (CLI) | payer MEDICARE, BC ==
[~2020-02-25] MED LIST changes: -ADENOSINE 77 MG in GIVE UN-DILUTED 0 ML IV ONE; -ADENOSINE 90 MG/30 ML INJ IV ONE
[2020-02-25 12:22] LABS: Basophils # (auto) 0 10 ^3/uL (0-0.2); Basophils % (auto) 0.1 % (0.0-2.0); Eosinophils # (auto) 0 10 ^3/uL (0-0.8); Hematocrit 44.4 % (36.0-46.0); Hemoglobin 14.7 g/dL (12.2-16.2); Lymphocytes # (auto) 0.5 10 ^3/uL (0.4-5.4); Lymphocytes % (auto) 14.2 % (10.0-50.0); Mean Corpuscular Hemoglobin 30.5 pg (28.0-32.0); Mean Corpuscular Hgb Conc. 33.1 g/dL (32.0-36.0); Mean Corpuscular Volume 92.3 fL (80.0-100.0); Monocytes # (auto) 0.3 10 ^3/uL (0-1.3); Monocytes % (auto) 8.9 % (0.0-12.0); Neutrophils # (auto) 2.9 10 ^3/uL (1.6-8.6); Neutrophils % (auto) 75.8 % (37.0-80.0); Nucleated Red Blood Cells % 0.3 %; Platelet Count (auto) 174 10^3/uL (140-450); Red Blood Cells 4.81 10^6/uL (4.0-5.20); Red Cell Distribution Width 14.1 % (11.8-14.3); White Blood Cell 3.8 10^3/uL (4.4-10.8)
[2020-02-25 12:44] LABS: INR 1.02 (0.9-1.15); Partial Thromboplastin Time 25.4 sec (23.0-31.2)
== END | disposition home or self-care (01) ==
LOC: LAB 08:42
PROVIDERS: ATTEND Internal Medicine Cardiovascular Disease
DX: Z01.812 Encounter for preprocedural laboratory examination (principal); R79.1 Abnormal coagulation profile; D64.9 Anemia, unspecified
CPT/HCPCS: 36415; 85025; 85610; 85730

== ENCOUNTER → 2020-07-28 | Outpatient (CLI) | payer MEDICARE, BC ==
[~2020-07-28] MED LIST changes: +ESCI-34 PO; -ESCI20TA51 PO
[2020-07-28 12:07] LABS: Urine Blood Negative /uL (Negative); Urine Specific Gravity 1.014 (1.001-1.035)
[2020-07-28 12:09] LABS: Basophils # (auto) 0 10 ^3/uL (0-0.2); Basophils % (auto) 0.3 % (0.0-2.0); Eosinophils # (auto) 0.1 10 ^3/uL (0-0.8); Eosinophils % (auto) 1.1 % (0.0-7.0); Hematocrit 45.2 % (36.0-46.0); Hemoglobin 15.1 g/dL (12.2-16.2); Lymphocytes # (auto) 0.7 10 ^3/uL (0.4-5.4); Lymphocytes % (auto) 15.7 % (10.0-50.0); Mean Corpuscular Hemoglobin 31.3 pg (28.0-32.0); Mean Corpuscular Hgb Conc. 33.4 g/dL (32.0-36.0); Mean Corpuscular Volume 93.9 fL (80.0-100.0); Monocytes # (auto) 0.4 10 ^3/uL (0-1.3); Monocytes % (auto) 9.3 % (0.0-12.0); Neutrophils # (auto) 3.4 10 ^3/uL (1.6-8.6); Neutrophils % (auto) 73.6 % (37.0-80.0); Nucleated Red Blood Cells % 0.2 %; Platelet Count (auto) 150 10^3/uL (140-450); Red Blood Cells 4.81 10^6/uL (4.0-5.20); Red Cell Distribution Width 13.8 % (11.8-14.3); White Blood Cell 4.6 10^3/uL (4.4-10.8)
[2020-07-28 12:26] LABS: Potassium 4.2 mmol/L (3.5-5.1)
[2020-07-28 12:44] LABS: Albumin 3.6 g/dL (3.4-5.0); BUN/Creatinine Ratio 18.6; Bilirubin, Total 0.6 mg/dL (0.2-1.0); Calcium 9.1 mg/dL (8.5-10.1); Free T4 (Free Thyroxine) 1.9 ng/dL (0.89-1.76); Total Protein 6.7 g/dL (6.4-8.2)
== END | disposition home or self-care (01) ==
LOC: LAB 08:31
PROVIDERS: ATTEND Internal Medicine Cardiovascular Disease
DX: D51.3 Other dietary vitamin B12 deficiency anemia (principal); I10 Essential (primary) hypertension; E11.9 Type 2 diabetes mellitus without complications; E55.9 Vitamin D deficiency, unspecified; D64.9 Anemia, unspecified; R00.2 Palpitations; R53.1 Weakness; R30.0 Dysuria
CPT/HCPCS: 36415; 80053; 80061; 81003; 82306; 82607; 83036; 84439; 84443; 85025; 87086

== ENCOUNTER → 2021-04-23 | Outpatient (CLI) | payer MEDICARE, BC ==
[~2021-04-23] MED LIST changes: -CARB25TA22 PO; +CARB25TA79 PO; +READI-CAT 2 (BARIUM SULF)(VANILLA SMOOTHIE) 450ML ONE
== END | disposition home or self-care (01) ==
LOC: Rad HDHVI 08:16
PROVIDERS: ATTEND Internal Medicine Cardiovascular Disease
DX: K57.30 Diverticulosis of large intestine without perforation or abscess without bleeding (principal); M47.816 Spondylosis without myelopathy or radiculopathy, lumbar region; I70.0 Atherosclerosis of aorta; N85.8 Other specified noninflammatory disorders of uterus; Z90.49 Acquired absence of other specified parts of digestive tract
CPT/HCPCS: 74176

== ENCOUNTER → 2021-04-27 | Outpatient (CLI) | payer MEDICARE, BC ==
[~2021-04-27] MED LIST changes: -READI-CAT 2 (BARIUM SULF)(VANILLA SMOOTHIE) 450ML ONE
[2021-04-27 11:14] LABS: Basophils # (auto) 0 10 ^3/uL (0-0.2); Basophils % (auto) 0.3 % (0.0-2.0); Eosinophils # (auto) 0 10 ^3/uL (0-0.8); Eosinophils % (auto) 1.2 % (0.0-7.0); Hematocrit 42.2 % (36.0-46.0); Hemoglobin 14.4 g/dL (12.2-16.2); Lymphocytes # (auto) 0.8 10 ^3/uL (0.4-5.4); Lymphocytes % (auto) 18.3 % (10.0-50.0); Mean Corpuscular Hemoglobin 32.2 pg (28.0-32.0); Mean Corpuscular Volume 94.6 fL (80.0-100.0); Monocytes # (auto) 0.4 10 ^3/uL (0-1.3); Monocytes % (auto) 9.7 % (0.0-12.0); Neutrophils # (auto) 2.9 10 ^3/uL (1.6-8.6); Neutrophils % (auto) 70.5 % (37.0-80.0); Nucleated Red Blood Cells % 0.1 %; Red Blood Cells 4.47 10^6/uL (4.0-5.20); Red Cell Distribution Width 12.9 % (11.8-14.3); White Blood Cell 4.1 10^3/uL (4.4-10.8)
[2021-04-27 11:25] LABS: INR 1.05 (0.9-1.15); Partial Thromboplastin Time 24.6 sec (23.6-33.0)
== END | disposition home or self-care (01) ==
LOC: LAB 09:17
PROVIDERS: ATTEND Internal Medicine Cardiovascular Disease
DX: R10.9 Unspecified abdominal pain (principal)
CPT/HCPCS: 36415; 85025; 85610; 85730

== ENCOUNTER → 2021-12-11 | Outpatient (CLI) | payer MEDICARE, BC | END | disposition home or self-care (01) | LOC: Rad HDHVI 09:53 | PROVIDERS: ATTEND Internal Medicine Cardiovascular Disease | DX: I10 Essential (primary) hypertension (principal); R00.2 Palpitations | CPT/HCPCS: 93306 ==

== ENCOUNTER → 2021-12-17 | Outpatient (CLI) | payer MEDICARE, BC ==
[2021-12-17 14:16] LABS: Basophils # (auto) 0 10 ^3/uL (0-0.2); Basophils % (auto) 0.3 % (0.0-2.0); Eosinophils # (auto) 0.1 10 ^3/uL (0-0.8); Eosinophils % (auto) 1.8 % (0.0-7.0); Hemoglobin 14.4 g/dL (12.2-16.2); Lymphocytes # (auto) 0.7 10 ^3/uL (0.4-5.4); Lymphocytes % (auto) 18.4 % (10.0-50.0); Mean Corpuscular Hemoglobin 30.6 pg (28.0-32.0); Mean Corpuscular Hgb Conc. 32.8 g/dL (32.0-36.0); Mean Corpuscular Volume 93.5 fL (80.0-100.0); Monocytes # (auto) 0.4 10 ^3/uL (0-1.3); Monocytes % (auto) 9.6 % (0.0-12.0); Neutrophils # (auto) 2.6 10 ^3/uL (1.6-8.6); Neutrophils % (auto) 69.9 % (37.0-80.0); Nucleated Red Blood Cells % 0.1 %; Red Blood Cells 4.71 10^6/uL (4.0-5.20); Red Cell Distribution Width 13.6 % (11.8-14.3); White Blood Cell 3.7 10^3/uL (4.4-10.8)
[2021-12-17 14:24] LABS: Urine Blood Negative /uL (Negative); Urine Specific Gravity 1.015 (1.001-1.035)
[2021-12-17 14:28] LABS: Potassium 4.6 mmol/L (3.5-5.1)
[2021-12-17 14:37] LABS: Free T4 (Free Thyroxine) 1.52 ng/dL (0.89-1.76)
[2021-12-17 14:38] LABS: Albumin 3.6 g/dL (3.4-5.0); BUN/Creatinine Ratio 15.4; Bilirubin, Total 0.5 mg/dL (0.2-1.0); Calcium 8.8 mg/dL (8.5-10.1); Total Protein 6.7 g/dL (6.4-8.2)
== END | disposition home or self-care (01) ==
LOC: LAB 08:02
PROVIDERS: ATTEND Internal Medicine Cardiovascular Disease
DX: I10 Essential (primary) hypertension (principal); E55.9 Vitamin D deficiency, unspecified; D51.3 Other dietary vitamin B12 deficiency anemia; D64.9 Anemia, unspecified; E11.9 Type 2 diabetes mellitus without complications; R00.2 Palpitations; R53.1 Weakness; R30.0 Dysuria
CPT/HCPCS: 36415; 80053; 80061; 81003; 82306; 82607; 83036; 84439; 84443; 85025; 87086

== ENCOUNTER → 2021-12-29 | Outpatient (CLI) | payer MEDICARE, BC ==
[~2021-12-29] VITALS: Ht 165.1 cm; Wt 85.3 kg
[~2021-12-29] MED LIST changes: +ADENOSINE 72 MG in GIVE UN-DILUTED 0 ML IV ONE; +ADENOSINE 90 MG/30 ML INJ IV ONE
== END | disposition home or self-care (01) ==
LOC: Rad HDHVI 08:03
PROVIDERS: ATTEND Internal Medicine Cardiovascular Disease
DX: I42.9 Cardiomyopathy, unspecified (principal); I95.9 Hypotension, unspecified; G90.9 Disorder of the autonomic nervous system, unspecified; E78.5 Hyperlipidemia, unspecified; Z82.49 Family history of ischemic heart disease and other diseases of the circulatory system; Z79.899 Other long term (current) drug therapy
CPT/HCPCS: 78452; 93005; 96374; 96375; A9500; J0153

== ENCOUNTER → 2022-02-17 | Outpatient (CLI) | payer MEDICARE, BC ==
[~2022-02-17] MED LIST changes: -ADENOSINE 72 MG in GIVE UN-DILUTED 0 ML IV ONE; -ADENOSINE 90 MG/30 ML INJ IV ONE
== END | disposition home or self-care (01) ==
LOC: Rad HDHVI 08:19
PROVIDERS: ATTEND Internal Medicine Cardiovascular Disease
DX: I82.409 Acute embolism and thrombosis of unspecified deep veins of unspecified lower extremity (principal); R06.9 Unspecified abnormalities of breathing
CPT/HCPCS: 93971

== ENCOUNTER 2023-12-05 18:03 | Emergency (ER) | payer MEDICARE, BC ==
[~2023-12-05] VITALS: Ht 170.2 cm; Wt 81.8 kg
[~2023-12-05 18:03] MED LIST changes: -ESCI-34 PO; +ESCI1TAB37 PO; +GABA-1308 PO; -GABA100C9 PO; +LORA-1121 PO; -LORA0.5T20 PO
[2023-12-05 21:18] LABS: Basophils # (auto) 0 10 ^3/uL (0-0.2); Basophils % (auto) 0.3 % (0.0-2.0); Eosinophils # (auto) 0.1 10 ^3/uL (0-0.8); Hematocrit 41.1 % (36.0-46.0); Hemoglobin 13.9 g/dL (12.2-16.2); Lymphocytes % (auto) 17.7 % (10.0-50.0); Mean Corpuscular Hemoglobin 31.5 pg (28.0-32.0); Mean Corpuscular Hgb Conc. 33.9 g/dL (32.0-36.0); Mean Corpuscular Volume 92.9 fL (80.0-100.0); Monocytes # (auto) 0.6 10 ^3/uL (0-1.3); Monocytes % (auto) 9.8 % (0.0-12.0); Neutrophils % (auto) 71.2 % (37.0-80.0); Nucleated Red Blood Cells % 0.1 %; Platelet Count (auto) 154 10^3/uL (140-450); Red Blood Cells 4.42 10^6/uL (4.0-5.20); Red Cell Distribution Width 14.8 % (11.8-14.3); White Blood Cell 5.7 10^3/uL (4.4-10.8)
[2023-12-05 21:24] LABS: Alanine Aminotransferase 21 U/L (7-40); Albumin 4.1 g/dL (3.2-4.8); Alkaline Phosphatase 91 U/L (46-116); Anion Gap 7 (5-15); Aspartate Aminotransferase 24 U/L (13-40); BUN/Creatinine Ratio 16.5 (10.0-20.0); Blood Urea Nitrogen 13 mg/dL (9-23); Calcium 9.6 mg/dL (8.7-10.4); Carbon Dioxide 28 mmol/L (20-30); Chloride 105 mmol/L (98-107); Glucose 101 mg/dL (74-106); Sodium 140 mmol/L (136-145)
[2023-12-05 21:25] LABS: Bilirubin, Total 0.6 mg/dL (0.2-1.0); Total Protein 6.4 g/dL (5.7-8.2)
[2023-12-05 23:41] VITALS: BP 173/82; TEMP 97.3
[2023-12-05 23:42] VITALS: PULSE 64; RESP 18; O2SAT 95
[2023-12-05] MEDS ORDERED: LEVO500T91 PO (23:51)
[2023-12-05] MEDS: SODIUM CHLORIDE 0.9% 1,000 ML IV ONE (23:58)
[2023-12-06] MEDS: levoFLOXacin 500MG 100 ML IV ONE (00:16)
== END 2023-12-06 02:39 | disposition home or self-care (01) ==
LOC: EDBD 18:03 → ER 18:03
DX: R53.1 Weakness (principal); I10 Essential (primary) hypertension; E03.9 Hypothyroidism, unspecified; J18.9 Pneumonia, unspecified organism; Z79.899 Other long term (current) drug therapy; Z91.040 Latex allergy status; Z91.013 Allergy to seafood; Z98.890 Other specified postprocedural states
CPT/HCPCS: 36415; 70450; 71045; 80053; 84484; 85025; 93005; 96365; 96366; 99285; J1956; J7030

== ENCOUNTER → 2023-12-07 | Outpatient (CLI) | payer MEDICARE, BC ==
[~2023-12-07] MED LIST changes: +LEVO500T91 PO
== END | disposition home or self-care (01) ==
LOC: Rad HDHVI 13:09
PROVIDERS: ATTEND Internal Medicine Cardiovascular Disease
DX: R06.02 Shortness of breath (principal)
CPT/HCPCS: 71046